=== PATIENT | male | born 1995 | race American Indian/Alaskan Native ===

== ENCOUNTER 2016-08-24 19:09 | Emergency (ER) | payer SELFPAY ==
--- NOTE | 2016-08-24 20:55 | XRay Report ---
FINAL REPORT PROCEDURE: Facial bones. TECHNIQUE: Four views. HISTORY: Right nasal injury. COMPARISON: No prior studies are available for comparison. FINDINGS: On the lateral view there is a vertical piece of cortical bone located beneath the nasal bones. This is of uncertain etiology. It could represent a displaced nasal fracture. It could also represent some calcification of the nasal septum. This finding is not definitely seen on the other projections. A CT scan would be the best means of evaluating a nasal fracture in this patient. The paranasal sinuses and mastoid air cells are clear. IMPRESSION: Suboptimal evaluation of the nasal bones. Possible nasal fracture as discussed above.
--- NOTE | 2016-08-24 22:49 | Emergency Department Report ---
HPI - General Chief Complaint: Nosebleed Time Seen by Provider: 08/24/16 22:49 - HPI HPI: Patient here report at 5:15 PM while playing basketball was incidentally hit on the nose. He report right nasal swelling and pain. Pain is. At 10. He reports that there was some bleeding initially but none now. He said the pain is achy in. He reports that he thinks that his nose is broken and he would like to have it resected in emergency room. No [id number] medication taken but he placed ice packs site. Patient does not have any medical problem per patient. Denies any head injury or loss of consciousness. Denies any dizziness or blurred vision. Denies fall with incident. ED Past Medical Hx - Past Medical History Previous Medical History?: No - Surgical History Past Surgical History?: No - Family History Family history: no significant - Social History Smoking Status: Never Smoker Substance Use Type: None - Medications Home Medications: Home Medications Medication Instructions Recorded Confirmed Last Taken Type Ibuprofen [Motrin] 600 mg PO Q8H PRN #15 tablet 08/25/16 Unknown Rx ED Review of Systems ROS: Stated complaint: BROKEN NOSE Other details as noted in HPI Comment: All other systems reviewed and negative Constitutional: denies: chills, fever ENT: epistaxis, other (nasal bone pain and swelling) Respiratory: no symptoms reported Cardiovascular: denies: chest pain, palpitations, dyspnea on exertion, orthopnea , edema, syncope Gastrointestinal: denies: abdominal pain, nausea, vomiting, diarrhea Musculoskeletal: denies: back pain, joint swelling, arthralgia, myalgia Skin: denies: rash Neurological: denies: headache, weakness, numbness, paresthesias, confusion, abnormal gait, vertigo Physical Exam - Physical Exam Vital Signs: Vital Signs 08/24/16 19:43 Temperature 98.2 F Pulse Rate 56 L Respiratory 16 Rate Blood Pressure 117/68 Blood Pressure 117/68 [Left] O2 Sat by Pulse 100 Oximetry General: This is a 20-year-old male well-nourished well-developed in no acute distress. Physical Exam: Head: Normocephalic atraumatic Mouth: Moist, no pharyngeal exudate or erythema. Uvula is midline and oral airway is patent. No facial swelling. No peritonsillar abscesses. Nose: Nasal mucosa without any bleeding . Maxillary and frontal sinuses nontender to palpate. nasal septal deviation with external nasal swelling proximally. Tender to palpate. Neck: Supple, no C-spine tenderness, no tracheal deviation. Nontender to palpate. no adenopathy Ears: Bilateral TMs [place]. Bilateral EAC without any redness swelling or drainage. Abdomen: Soft, nontender to palpate in all quadrants, normal bowel sounds in all quadrant and negative CVA tenderness bilaterally. Back: No vertebral or paraspinal tenderness. No saddle anesthesia. Patient able to ambulate without any difficulties. Negative SLR bilaterally. Neurological: GCS of 15, alert and oriented 3. Speech is clear and fluid. Normal gait. No motor or sensory deficit. Normal reflexes. No facial drooping. No pronator drift and negative Romberg. Eyes: Bilateral pupils equal and reactive to light, bilateral EOM intact. Bilateral sclera and conjunctiva without injection. Normal accommodation. No nystagmus Lungs: Clear to auscultate bilaterally no rhonchi wheezes or rales. Normal work of breathing extremity; No CCE. +2 pulses. No neurovascular compromise Cardiovascular: S1-S2, regular rate rhythm. No murmurs. Sinus bradycardia at 56 which is normal for patient Skin: clean Dry and intact no rash no lesions Psych: Normal mood and behavior ED Course Vital Signs 08/24/16 19:43 Temperature 98.2 F Pulse Rate 56 L Respiratory 16 Rate Blood Pressure 117/68 Blood Pressure 117/68 [Left] O2 Sat by Pulse 100 Oximetry - Reevaluation(s) Reevaluation #1: 08/24/16 23:58 Ice applied to affected area but patient didn't refuses pain medication ED Medical Decision Making - Radiology Data Radiology results: report reviewed X-ray of facial bones reveal possible nasal fracture which is displaced. Paranasal sinuses and mastoid air cells are clear. - Medical Decision Making ED course: Patient status post injury to nose with pain and swelling. X-ray report revealed possible displaced nasal bone fracture. This was communicated with patient. Thus with them that he will need to follow-up with ear nose and throat doctor to correct nasal bone fracture. Said discussed with him he can take Motrin to reduce swelling and put ice in the area over the next 72 hours. He voiced understanding of discharge diagnosis and treatment. Surgical home with prescription for Motrin and to follow up with ear nose and throat. Critical care attestation.: If time is entered above; I have spent that time in minutes in the direct care of this critically ill patient, excluding procedure time. ED Disposition Clinical Impression: Deviated nasal bone Nasal bone fx-closed Qualifiers: Encounter type: initial encounter Qualified Code(s): S02.2XXA - Fracture of nasal bones, initial encounter for closed fracture Disposition: DC- TO HOME OR SELFCARE Is pt being admited?: No Does the pt Need Aspirin: No Condition: Stable Instructions: Nasal Fracture (ED) Additional Instructions: Please apply ice to affected area to reduce swelling Motrin as prescribed to reduce swelling He's follow-up with ENT as recommended call tomorrow to schedule appointment. Prescriptions: Ibuprofen [Motrin] 600 mg PO Q8H PRN #15 tablet PRN Reason: Pain [facility] [Provider Group] - 08/25/16 REHAN CYR MD [Staff Physician] - 08/25/16 Forms: Work/School Release Form(ED)
[2016-08-25 00:14] VITALS: BP 116/72
== END 2016-08-25 00:13 | disposition home or self-care (01) ==
LOC: ED 19:09
DX: S02.2XXA Fracture of nasal bones, initial encounter for closed fracture (principal); J34.2 Deviated nasal septum; W50.0XXA Accidental hit or strike by another person, initial encounter; Y93.67 Activity, basketball; Y99.9 Unspecified external cause status; Y92.89 Other specified places as the place of occurrence of the external cause
CPT/HCPCS: 70150